=== PATIENT | female | born 1950 | race Asian ===

== ENCOUNTER 2017-03-23 22:11 | Emergency (ER) | payer SELFPAY ==
--- NOTE | 2017-03-24 00:27 | ED ---
Head Injury - HPI Summary HPI Summary: 66F presents with head injury today. She took a flight from [place] today and at airport and leaning on suitcase when it rolled out from under her and she landed on her knees and forehead. She is on plavix. she denies any LOC, nausea or vomiting. She has contusion noted to knees and forehead. She denies any chest pain or SOB. She denies any other trauma. She has not taken anything for her pain. - History Of Current Complaint Chief Complaint: EDHeadInjury Stated Complaint: FALL- HEAD INJURY Time Seen by Provider: 03/23/17 23:04 Pain Intensity: 0 - Allergies/Home Medications Allergies/Adverse Reactions: Allergies Allergy/AdvReac Type Severity Reaction Status Date / Time Penicillins Allergy Rash Verified 03/23/17 22:19 PMH/Surg Hx/FS Hx/Imm Hx Endocrine/Hematology History: Reports: Hx Anticoagulant Therapy Cardiovascular History: Reports: Hx Hypertension Musculoskeletal History: Reports: Hx Osteoporosis - Immunization History Date of Tetanus Vaccine: unk Date of Influenza Vaccine: unk Infectious Disease History: No Infectious Disease History: Reports: Traveled Outside the [place] in Last 30 Days - Family History Known Family History: Positive: Cardiac Disease - Social History Alcohol Use: Occasionally Substance Use Type: Reports: None Smoking Status (MU): Former Smoker Review of Systems Negative: Fever Negative: Chest Pain Negative: Shortness Of Breath Negative: Vomiting, Nausea Positive: Myalgia - left knee pain Positive: Headache All Other Systems Reviewed And Are Negative: Yes Physical Exam Triage Information Reviewed: Yes Vital Signs On Initial Exam: Initial Vitals Temp Pulse Resp BP Pulse Ox 98.6 F 84 16 163/91 96 03/23/17 22:15 03/23/17 22:15 03/23/17 22:15 03/23/17 22:15 03/23/17 22:15 Vital Signs Reviewed: Yes Appearance: Positive: Well-Appearing Skin: Positive: Other - contusion noted to foreahead Head/Face: Positive: Other - no step off, raccoon eyes, rios sign Eyes: Positive: Normal, EOMI, ALONZO, Conjunctiva Clear ENT: Positive: Normal ENT inspection, Pharynx normal, TMs normal Respiratory/Lung Sounds: Positive: Clear to Auscultation, Breath Sounds Present Cardiovascular: Positive: Normal, RRR Musculoskeletal: Positive: Strength/ROM Intact - knees, Other - good pulses, ecchmyosis noted to bilateral knee Neurological: Positive: Alert, Oriented to Person Place, Time, CN Intact II-III , Reflexes Intact - Glo Coma Scale Best Eye Response: 4 - Spontaneous Best Motor Response: 6 - Obeys Commands Best Verbal Response: 5 - Oriented Coma Scale Total: 15 Diagnostics - Vital Signs Vital Signs Temp Pulse Resp BP Pulse Ox 03/23/17 22:59 99.7 F 84 16 141/85 94 03/23/17 22:15 98.6 F 84 16 163/91 96 - Laboratory Lab Statement: Any lab studies that have been ordered have been reviewed, and results considered in the medical decision making process. - Radiology knees bilateral Xray Interpretation: No Acute Changes Radiology Interpretation Completed By: ED Physician - CT brain CT Interpretation: No Acute Changes - normal brain CT Interpretation Completed By: Radiologist Head Injury Course/Dx Course Of Treatment: 66F presents with bilateral knee pain and head trauma s/p falling today. is on plavix. no LOC or vomiting. normal neuro exam. full ROM knees. contusion noted to knees and head. CT brain normal. I read knee xray as normal. patient understands and agrees with plan - Diagnoses Differential Diagnosis/HQI/PQRI: Concussion Without LOC, Contusion, Other - fracture Provider Diagnoses: Head injury, Bilateral knee pain Discharge - Discharge Plan Condition: Good Disposition: HOME Patient Education Materials: Head Injury (ED), Contusion in Adults (ED) Referrals: No Primary Care Phys,NOPCP [Primary Care Provider] - Additional Instructions: Place ice on area as needed Take Tylenol for pain every 6 hours as needed Keep legs elevated Follow up with primary Return to ED if develop vomiting, severe headache, change in behavior, or any new or worsening symptoms
[2017-03-24 01:27] VITALS: BP 141/79
--- NOTE | 2017-03-24 07:51 | RAD ---
HISTORY: Knee trauma bilaterally COMPARISONS: None VIEWS: 8, Frontal, lateral, axial, and oblique views of the left knee and of the right knee FINDINGS: Right: BONE DENSITY: Normal. BONES: There is no displaced fracture. JOINTS: There is mild tricompartmental osteoarthritis. There is no suprapatellar joint effusion or lipohemarthrosis. ALIGNMENT: There is no dislocation. The alignment is anatomic. SOFT TISSUES: Unremarkable. Left: BONE DENSITY: Normal. BONES: There is no displaced fracture. JOINTS: There is mild to moderate tricompartmental osteoarthritis, most pronounced within the medial compartment. There is no suprapatellar joint effusion or lipohemarthrosis. ALIGNMENT: There is no dislocation. The alignment is anatomic. SOFT TISSUES: Unremarkable. OTHER FINDINGS: None. IMPRESSION: BILATERAL OSTEOARTHRITIS. NO ACUTE OSSEOUS INJURY. IF SYMPTOMS PERSIST, RECOMMEND REPEAT IMAGING.
--- NOTE | 2017-03-24 07:54 | RAD ---
HISTORY: Head trauma, on Plavix COMPARISONS: None TECHNIQUE: Multiple contiguous axial CT scans were obtained of the head without intravenous contrast. FINDINGS: HEMORRHAGE/INFARCT: There is no hemorrhage or acute infarct. MASSES/SHIFT: There is no mass or shift. EXTRA-AXIAL SPACES: There are no extra-axial fluid collections. SULCI AND VENTRICLES: The sulci and ventricles are normal in size and position for the patient's stated age. CEREBRUM: There are no focal parenchymal abnormalities. BRAINSTEM: There are no focal parenchymal abnormalities. CEREBELLUM: There are no focal parenchymal abnormalities. VESSELS: The vessels are grossly normal. PARANASAL SINUSES: The paranasal sinuses are clear. ORBITS: The orbits are unremarkable. BONES AND SOFT TISSUE: There is minimal soft tissue swelling of the right frontal scalp OTHER: None IMPRESSION: NO ACUTE INTRACRANIAL PATHOLOGY.
== END 2017-03-24 01:25 | disposition home or self-care (01) ==
LOC: ED 22:11
DX: S09.90XA Unspecified injury of head, initial encounter (principal); M25.562 Pain in left knee; M25.561 Pain in right knee; W19.XXXA Unspecified fall, initial encounter; Y93.9 Activity, unspecified; Y92.9 Unspecified place or not applicable; Z87.891 Personal history of nicotine dependence; R51 Headache; Z79.01 Long term (current) use of anticoagulants
CPT/HCPCS: 70450; 99282